=== PATIENT | female | born 1990 | race Caucasian/White ===

== ENCOUNTER 2018-01-20 09:33 | Emergency (ER) | payer OTHER ==
[2018-01-20] MEDS: TETRACAINE 0.5% OPHTH SOLN 4ML OS (10:48)
== END 2018-01-20 11:24 | disposition home or self-care (01) ==
LOC: M ED 09:33
DX: J06.9 Acute upper respiratory infection, unspecified (principal); H10.9 Unspecified conjunctivitis; J30.2 Other seasonal allergic rhinitis; F41.9 Anxiety disorder, unspecified; Z79.899 Other long term (current) drug therapy; Z88.0 Allergy status to penicillin
CPT/HCPCS: 99283

== ENCOUNTER → 2018-08-19 | Outpatient (REF) | payer OTHER, MEDICAID ==
[~2018-08-19] MED LIST: AMBI10TA; BUPR150T5 PO; CEFD300CAP PO; CELE10TA; CETI10TA PO; FLON1SPR NARES; OCUF0.25 OP; POLY2.5S OP; PRED20TA PO
[2018-08-19 18:50] LABS: AMORPHOUS SEDIMENT SMALL (NEGATIVE); APPEARANCE, URINE TURBID (CLEAR); BACTERIA, URINE AUTO NEGATIVE (NEGATIVE); BILIRUBIN, URINE AUTO NEGATIVE (NEGATIVE); BLOOD, URINE BLOOD NEGATIVE (NEGATIVE); COLOR, URINE AMBER (YELLOW); GLUCOSE, URINE (UA) AUTO NEGATIVE (NEGATIVE); KETONE, URINE AUTO NEGATIVE (NEGATIVE); LEUKOCYTE ESTERASE, URINE AUTO NEGATIVE (NEGATIVE); MUCUS, URINE LARGE (NEGATIVE); NITRITE, URINE AUTO NEGATIVE (NEGATIVE); PROTEIN, URINE AUTO NEGATIVE (NEGATIVE); RBC, URINE AUTO 0 /HPF (0-3); SPECIFIC GRAVITY URINE AUTO 1.018 (1.002-1.035); SQUAMOUS EPITHELIAL CELL UR AU 0 /HPF (0-6); UROBILINOGEN, URINE AUTO 0.2 mg/dL (0.0-2.0); WBC, URINE AUTO 0 /HPF (0-3)
== END ==
LOC: M LAB REF 16:31
PROVIDERS: ATTEND Nurse Practitioner Women's Health
DX: Z30.09 Encounter for other general counseling and advice on contraception (principal); N39.46 Mixed incontinence

== ENCOUNTER → 2018-09-02 | Outpatient (REF) | payer OTHER, MEDICAID ==
[2018-09-02 19:32] LABS: C REACTIVE PROTEIN QUANTITATIV 0.66 MG/DL (0.00-0.30); RHEUMATOID FACTOR QUANT < 10.0 IU/ML (<15.0); URIC ACID 3.8 MG/DL (2.6-6.0)
[2018-09-02 19:42] LABS: BASO % 0.2 % (0.0-1.0); EOS % 0.1 % (0.0-3.0); HEMATOCRIT 42.5 % (36.0-47.0); HEMOGLOBIN 14.2 g/dl (12.0-15.5); LYMPH % 13.6 % (24.0-44.0); MEAN CORPUSCULAR HEMOGLOBIN 30.4 pg (27.0-33.0); MEAN CORPUSCULAR HGB CONC 33.4 g/dl (32.0-36.5); MONO # 0.2 10^3/uL (0.0-0.8); MONO % 1.2 % (0.0-5.0); NEUTROPHILS # 12.2 10^3/uL (1.8-7.7); NEUTROPHILS % 84.3 % (36.0-66.0); PLATELET COUNT, AUTOMATED 301 10^3/uL (150-450); RED BLOOD COUNT 4.67 10^6/uL (4.00-5.40); WHITE BLOOD COUNT 14.4 10^3/uL (4.0-10.0)
[2018-09-02 21:06] LABS: ERYTHROCYTE SEDIMENTATION RATE 15 mm/hr (0-20)
[2018-09-05 00:06] LABS: ANTINUCLEAR ANTIBODIES DIRECT Negative (Negative); Lyme Disease IgG/IgM Antibodie <0.91 ISR (0.00-0.90); Lyme Disease IgM Ab Quantitati <0.80 index (0.00-0.79)
== END ==
LOC: M LABDRAW1 18:13
PROVIDERS: ATTEND Physician Assistant Surgical
DX: M67.431 Ganglion, right wrist (principal)

== ENCOUNTER 2024-08-04 05:57 | Day surgery (SDC) | payer OTHER ==
[~2024-08-04] VITALS: Ht 160 cm; Wt 102.6 kg
[~2024-08-04 05:57] MED LIST changes: +BUPR-71 PO; -BUPR150T5 PO; +IBUP1TAB7 PO; +SYNT137T7 PO
[2024-08-04] MEDS ORDERED: LR 1,000 ML IV SCH (06:25)
[2024-08-04 06:43] LABS: MEAN CORPUSCULAR HEMOGLOBIN 29.6 pg (27.0-33.0); MEAN CORPUSCULAR HGB CONC 33.3 g/dl (32.0-36.5); MEAN CORPUSCULAR VOLUME 88.8 fl (80.0-96.0); PLATELET COUNT, AUTOMATED 310 10^3/uL (150-450); RED BLOOD COUNT 4.39 10^6/uL (4.00-5.40); WHITE BLOOD COUNT 9.6 10^3/uL (4.0-10.0)
[2024-08-04 07:03] LABS: HCG, SERUM QUALITATIVE NEGATIVE (NEGATIVE)
[2024-08-04] MEDS ORDERED: MIDAZOLAM INJ 2MG/2ML VIAL As Ordered ONE (07:05)
[2024-08-04] MEDS ORDERED: propofoL 200 MG/20 ML VIAL As Ordered ONE (07:05)
[2024-08-04] MEDS ORDERED: ROCURONIUM BROMIDE 50MG/5ML VIAL As Ordered ONE (07:05)
[2024-08-04] MEDS ORDERED: ONDANSETRON 4MG 2ML VIAL As Ordered ONE (07:05)
[2024-08-04] MEDS ORDERED: LIDOCAINE 2% 100MG/5ML SDV (FOR ANES.) As Ordered ONE (07:05)
[2024-08-04] MEDS ORDERED: ACETAMINOPHEN 1000MG/100ML IV BAG As Ordered ONE (07:05)
[2024-08-04] MEDS ORDERED: fentaNYL 100 MCG/2 ML INJECTION As Ordered ONE (07:05)
[2024-08-04] MEDS ORDERED: SUGAMMADEX SODIUM 500 MG/5 ML VIAL (BRIDION) As Ordered ONE (07:09)
[2024-08-04] MEDS ORDERED: KETOROLAC 30 MG/ML 1ML VIAL As Ordered ONE (07:10)
[2024-08-04] MEDS ORDERED: oxyCODONE 5MG TAB PO PRN (08:35)
[2024-08-04] MEDS ORDERED: ONDANSETRON 4MG 2ML VIAL IV PRN (08:35)
[2024-08-04] MEDS ORDERED: fentaNYL 100 MCG/2 ML INJECTION IV PRN (08:35)
[2024-08-04] MEDS ORDERED: oxyCODONE 5MG TAB PO ONE (09:30)
[2024-08-04 10:00] VITALS: BP 118/70; TEMP 97.3; O2SAT 98
[2024-08-04] MEDS ORDERED: KETOROLAC 30 MG/ML 1ML VIAL IV ONE (14:30)
== END 2024-08-04 10:11 | disposition home or self-care (01) ==
LOC: M SDC 05:57
PROVIDERS: ATTEND Obstetrics & Gynecology
DX: Z30.2 Encounter for sterilization (principal); Z30.432 Encounter for removal of intrauterine contraceptive device; Z68.39 Body mass index [BMI] 39.0-39.9, adult; Z79.899 Other long term (current) drug therapy; Z87.891 Personal history of nicotine dependence
CPT/HCPCS: 36415; 58301; 58661; 84703; 85027; 86850; 88302; J0131; J0665; J1100; J1885; J2250; J2405; J3010

== ENCOUNTER 2025-03-16 19:50 | Emergency (ER) | payer MEDICARE, OTHER ==
[~2025-03-16] VITALS: Ht 160 cm; Wt 106.8 kg
[2025-03-16] MEDS ORDERED: PANT40TA29 (19:59)
[2025-03-16] MEDS ORDERED: LEVO137T2 (19:59)
[2025-03-16 20:49] LABS: BASO # 0.1 10^3/uL (0.0-0.2); BASO % 0.6 % (0.0-1.0); EOS # 0.1 10^3/uL (0.0-0.5); EOS % 0.5 % (0.0-3.0); LYMPH # 1.6 10^3/uL (1.5-5.0); LYMPH % 12.7 % (24.0-44.0); MONO # 0.5 10^3/uL (0.0-0.8); MONO % 3.6 % (2.0-8.0); NEUTROPHILS # 10.3 10^3/uL (1.5-8.5); NEUTROPHILS % 82.3 % (36.0-66.0); PLATELET COUNT, AUTOMATED 364 10^3/uL (150-450)
[2025-03-16] MEDS: KETOROLAC 30 MG/ML 1 ML VIAL IV ONE (20:51)
[2025-03-16] MEDS: NS (Normal Saline) 0.9% 1,000 ML IV ONE (20:51)
[2025-03-16] MEDS: PANTOPRAZOLE 40MG VIAL IV ONE (20:51)
[2025-03-16] MEDS: ONDANSETRON 4MG/2ML VIAL IV ONE (20:51)
[2025-03-16 21:17] LABS: ALT/SGPT 35 U/L (7.0-40); AST/SGOT 29 U/L (<34); CALCIUM LEVEL 9.7 MG/DL (8.5-10.1); CARBON DIOXIDE LEVEL 28 MMOL/L (20-31); CHLORIDE LEVEL 103 MMOL/L (98-107); CREATININE FOR GFR 0.82 MG/DL (0.55-1.30); GLOMERULAR FILTRATION RATE > 90.0 (>60); POTASSIUM SERUM 4.2 MMOL/L (3.5-5.1); SODIUM LEVEL 142 MMOL/L (136-145)
[2025-03-16 21:25] LABS: HCG, SERUM QUALITATIVE NEGATIVE (NEGATIVE)
[2025-03-16] MEDS ORDERED: ONDA-282 PO (21:48)
[2025-03-16] MEDS ORDERED: HYDR-3713 PO (21:48)
[2025-03-16] MEDS ORDERED: AMOX875T2 PO (21:48)
[2025-03-16] MEDS: AUGMENTIN 875 MG TAB PO ONE (22:17)
[2025-03-16] MEDS: NORCO 5/325MG TABLET (HOME DOSE PACK) PO ONE (22:18)
[2025-03-16 22:20] VITALS: BP 114/64; TEMP 96.8; O2SAT 97
== END 2025-03-16 22:25 | disposition home or self-care (01) ==
LOC: M ED 19:50
DX: K80.00 Calculus of gallbladder with acute cholecystitis without obstruction (principal); Z79.1 Long term (current) use of non-steroidal anti-inflammatories (NSAID); Z79.2 Long term (current) use of antibiotics; Z79.899 Other long term (current) drug therapy
CPT/HCPCS: 76705; 80048; 80076; 82150; 83690; 84703; 85025; 96361; 96374; 99284; J1885; J2405; J2470

== ENCOUNTER 2025-04-28 09:51 | Day surgery (SDC) | payer OTHER ==
[~2025-04-28] VITALS: Ht 160 cm; Wt 102.1 kg
[~2025-04-28 09:51] MED LIST changes: +AMOX875T2 PO; +HYDR-3713 PO; +LEVO137T2; +ONDA-282 PO; +PANT40TA29
[2025-04-28] MEDS ORDERED: MIDAZOLAM INJ 2 MG/2 ML VIAL As Ordered ONE (09:57)
[2025-04-28] MEDS ORDERED: ACETAMINOPHEN 1000MG/100ML IV BAG As Ordered ONE (09:58)
[2025-04-28] MEDS ORDERED: ONDANSETRON 4MG/2ML VIAL As Ordered ONE (09:58)
[2025-04-28] MEDS ORDERED: LIDOCAINE 2% 100 MG/5 ML SDV (FOR ANES.) As Ordered ONE (09:58)
[2025-04-28] MEDS ORDERED: ROCURONIUM BROMIDE 50MG/5ML VIAL As Ordered ONE (09:58)
[2025-04-28] MEDS ORDERED: dexAMETHasone 4 MG/ML 1 ML VIAL As Ordered ONE (09:58)
[2025-04-28] MEDS: LR 1,000 ML IV SCH (10:32)
[2025-04-28] MEDS ORDERED: KETOROLAC 30 MG/ML 1 ML VIAL As Ordered ONE (11:48)
[2025-04-28] MEDS ORDERED: SUGAMMADEX SODIUM 500 MG/5 ML VIAL As Ordered ONE (11:48)
[2025-04-28] MEDS ORDERED: LR 1,000 ML IV SCH (12:15)
[2025-04-28] MEDS: ONDANSETRON 4MG/2ML VIAL IV PRN (12:46)
[2025-04-28] MEDS: HYDROMORPHONE HCL 0.5 MG/0.5 ML SYRINGE IV PRN (12:46)
[2025-04-28 14:50] VITALS: BP 119/75; TEMP 97.2; O2SAT 97
== END 2025-04-28 15:00 | disposition home or self-care (01) ==
LOC: M SDC 09:51
PROVIDERS: ATTEND Surgery
DX: K80.10 Calculus of gallbladder with chronic cholecystitis without obstruction (principal); E89.0 Postprocedural hypothyroidism; Z79.890 Hormone replacement therapy; Z79.899 Other long term (current) drug therapy; K21.9 Gastro-esophageal reflux disease without esophagitis; F17.290 Nicotine dependence, other tobacco product, uncomplicated; Z98.51 Tubal ligation status
CPT/HCPCS: 47562; 88304; J0131; J0665; J1100; J1171; J1885; J2250; J2405; J2765; J3010; S2900